=== PATIENT | female | born 1935 | race Caucasian/White ===

== ENCOUNTER 2017-02-09 18:24 | Emergency (ER) | payer MEDICARE, OTHER ==
[~2017-02-09] VITALS: Ht 157.5 cm; Wt 59.0 kg
[~2017-02-09 18:24] MED LIST: AMLO5TAB4 PO; ASPI-664 PO; OLME5TAB4 PO
[2017-02-09 18:27] VITALS: Ht 157.5 cm; Wt 59.0 kg
--- NOTE | 2017-02-09 18:33 | ERD ---
ER Documentation Chief Complaint Chief Complaint CHEST PRESSURE RELIEVED WITH NITRO SPRAY X 1 ROS All systems reviewed and are negative except as per history of present illness. Medications Home Meds Active Scripts Amlodipine Besylate* (Norvasc*) 5 Mg Tablet, 5 MG PO DAILY for 30 Days, TAB 2 Refills Prov:JUVENTINO MULLEN S. 06/01/14 Olmesartan Medoxomil (Benicar) 5 Mg Tablet, 10 MG PO DAILY for 30 Days, TAB 2 Refills Prov:CARISA MULLENP S. 06/01/14 Reported Medications Aspirin* (Aspirin* EC) 81 Mg Tablet.dr, 81 MG PO DAILY, TAB 05/31/14 Allergies Allergies: Coded Allergies: Apricot (Verified Allergy, Unknown, 06/01/14) morphine (Verified Allergy, Unknown, VOMITING X6HRS PER FAMILY, 06/01/14) PMhx/Soc History of Surgery: Yes (appendectomy,uterus sx) Anesthesia Reaction: No Hx Neurological Disorder: No Hx Respiratory Disorders: No Hx Cardiac Disorders: Yes (HTN) Hx Psychiatric Problems: No Hx Miscellaneous Medical Probl: Yes (HTN) Hx Alcohol Use: No Hx Substance Use: No Hx Tobacco Use: No Physical Exam Vitals Vital Signs Date Time Temp Pulse Resp B/P Pulse Ox O2 Delivery O2 Flow Rate FiO2 02/09/17 18:27 98.4 88 18 174/76 96 Physical Exam Const: [] Head: Atraumatic Eyes: Normal Conjunctiva ENT: Normal External Ears, Nose and Mouth. Neck: Full range of motion..~ No meningismus. Resp: Clear to auscultation bilaterally Cardio: Regular rate and rhythm, no murmurs Abd: Soft, non tender, non distended. Normal bowel sounds Skin: No petechiae or rashes Back: No midline or flank tenderness Ext: No cyanosis, or edema Neur: Awake and alert Psych: Normal Mood and Affect DELMA MACDONALD MD Feb 09, 2017 18:33
--- NOTE | 2017-02-09 19:13 | RADRPT ---
PROCEDURE: XR Chest. CLINICAL INDICATION: Chest Pain. TECHNIQUE: Single frontal view of the chest was obtained COMPARISON: Chest radiograph dated November 25, 2007. FINDINGS: The heart is normal in size. There are chronic interstitial lung changes, similar in appearance when compared to prior study. No focal consolidations, pleural effusions, or pneumothorax. There are degenerative changes of the spine and shoulder joints. IMPRESSION: 1. No acute cardiopulmonary disease. 2. Chronic interstitial lung changes, not significantly changed in appearance compared to prior nishi dy. RPTAT:AAJJ Physician Hortensia Date Time Electronically viewed and signed by Physician Hortensia on 02/09/2017 19:13 QL/
[2017-02-09] MEDS ORDERED: NIFE30TA60 PO (19:17)
[2017-02-09] MEDS ORDERED: CLON-379 PO (19:18)
[2017-02-09] MEDS ORDERED: RANI150T5 PO (19:19)
[2017-02-09] MEDS ORDERED: METO-429 PO (19:19)
[2017-02-09] MEDS ORDERED: AMLO-147 PO (19:21)
[2017-02-09] MEDS ORDERED: ASPI81TA50 PO (19:22)
[2017-02-09] MEDS ORDERED: MEMA5TAB PO (19:24)
[2017-02-09] MEDS ORDERED: CRES10 PO (19:24)
[2017-02-09] MEDS ORDERED: OMEP20CA16 PO (19:25)
[2017-02-09] MEDS ORDERED: SOD CHLORIDE 0.9% 500 ML IV STA (20:12)
--- NOTE | 2017-02-09 20:19 | ERD ---
ER Documentation Chief Complaint Chief Complaint CHEST PRESSURE RELIEVED WITH NITRO SPRAY X 1 HPI 81-year-old female with a history of hypertension and high cholesterol brought into the ER by EMS for chest pain. She was given aspirin and nitro prior to arrival with improvement of her symptoms. The patient states that her blood pressure is frequently out of control with a systolic blood pressure in the 180s. Today she started having dizziness, epigastric discomfort, nausea, with headache. This started several hours prior to arrival. Because her symptoms were not improving, ambulance was called. Now she states she feels much better after the nitro. ROS All systems reviewed and are negative except as per history of present illness. Medications Home Meds Reported Medications Omeprazole* (Omeprazole*) 20 Mg Capsule., 20 MG PO DAILY, #30 CAP 02/09/17 Memantine* (Namenda*) 5 Mg Tablet, 5 MG PO DAILY, #30 TAB 02/09/17 Rosuvastatin Calcium* (Crestor*) 10 Mg Tablet, 10 MG PO QHS, #30 TAB 02/09/17 Aspirin (Aspir-Low) 81 Mg Tablet., 81 MG PO DAILY 02/09/17 Amlodipine Besylate* (Amlodipine Besylate*) 10 Mg Tablet, 10 MG PO DAILY, #30 TAB IF NEEDED PATIENT NEED TO TAKE 1TAB-QAM AND 1/2TAB-QHS 02/09/17 Ranitidine Hcl* (Ranitidine Hcl*) 150 Mg Tablet, 150 MG PO HS, #30 TAB 02/09/17 Metoprolol Tartrate* (Lopressor*) 50 Mg Tab, 50 MG PO DAILY, #60 TAB 02/09/17 Clonidine Hcl* (Clonidine Hcl*) 0.1 Mg Tab, 0.1 MG PO NEEDED Y for HTN, TAB 02/09/17 Nifedipine* (Nifedipine ER*) 30 Mg Tablet.sa, 30 MG PO BID, TAB.SA 02/09/17 Discontinued Reported Medications Aspirin* (Aspirin* EC) 81 Mg Tablet., 81 MG PO DAILY, TAB 05/31/14 Discontinued Scripts Amlodipine Besylate* (Norvasc*) 5 Mg Tablet, 5 MG PO DAILY for 30 Days, TAB 2 Refills Prov:JUVENTINO MULLEN S. 06/01/14 Olmesartan Medoxomil (Benicar) 5 Mg Tablet, 10 MG PO DAILY for 30 Days, TAB 2 Refills Prov:JUVENTINO MULLEN. 06/01/14 Allergies Allergies: Coded Allergies: Apricot (Verified Allergy, Unknown, 02/09/17) morphine (Verified Allergy, Unknown, VOMITING X6HRS PER FAMILY, 02/09/17) PMhx/Soc History of Surgery: Yes Anesthesia Reaction: No Hx Neurological Disorder: No Hx Respiratory Disorders: No Hx Cardiac Disorders: Yes (Hypertension) Hx Psychiatric Problems: No Hx Miscellaneous Medical Probl: No Hx Alcohol Use: No Hx Substance Use: No Hx Tobacco Use: No Smoking Status: Never smoker FmHx Family History: No coronary disease Physical Exam Vitals Vital Signs Date Time Temp Pulse Resp B/P Pulse Ox O2 Delivery O2 Flow Rate FiO2 02/09/17 19:34 98.0 85 21 154/73 98 Room Air 02/09/17 19:34 Nasal Cannula 2 02/09/17 18:27 98.4 88 18 174/76 96 Physical Exam Const: Well-appearing, no apparent distress Head: Atraumatic Eyes: Normal Conjunctiva, PERRLA, EOMI ENT: Normal External Ears, Nose and Mouth. Neck: Full range of motion..~ No meningismus. Resp: Clear to auscultation bilaterally Cardio: Regular rate and rhythm, no murmurs. 2+ distal pulses in all 4 extremities Abd: Soft, non tender, non distended. Normal bowel sounds Skin: No petechiae or rashes Back: No midline or flank tenderness Ext: No cyanosis, or edema Neur: Awake and alert, oriented 3, cranial nerves intact, strength and sensations intact in all 4 extremities Psych: Normal Mood and Affect Result Diagram: 02/09/173 02/09/17 1833 Results 24 hrs Laboratory Tests Test 02/09/17 18:33 White Blood Count 5.010^3/ul Red Blood Count 3.8810^6/ul Hemoglobin 10.6g/dl Hematocrit 33.1% Mean Corpuscular Volume 85.3fl Mean Corpuscular Hemoglobin 27.3pg Mean Corpuscular Hemoglobin Concent 32.0g/dl Red Cell Distribution Width 14.4% Platelet Count 50929^3/UL Mean Platelet Volume 9.6fl Neutrophils % 63.4% Lymphocytes % 26.6% Monocytes % 7.4% Eosinophils % 1.8% Basophils % 0.6% Nucleated Red Blood Cells % 0.0/100WBC Neutrophils # 3.210^3/ul Lymphocytes # 1.310^3/ul Monocytes # 0.410^3/ul Eosinophils # 0.110^3/ul Basophils # 0.010^3/ul Nucleated Red Blood Cells # 0.010^3/ul Sodium Level 142mmol/L Potassium Level 4.2mmol/L Chloride Level 109mmol/L Carbon Dioxide Level 23mmol/L Anion Gap 14 Blood Urea Nitrogen 28mg/dl Creatinine 1.17mg/dl Glucose Level 117mg/dl Calcium Level 8.4mg/dl Troponin I < 0.012ng/ml Current Medications Medications (Trade) Dose Ordered Sig/Nancy Route PRN Reason Start Time Stop Time Status Last Admin Dose Admin Sodium Chloride (NS) 500 ml @ 500 mls/hr Q1H STAT IV 02/09/17 20:12 02/09/17 21:11 Procedures/MDM EKG: Rate/Rhythm: Normal Sinus Rhythm QRS, ST, T-waves: No changes consistent w/ acute ischemia Impression: No evidence of ischemia or arrhythmia Labs CBC shows mild anemia BMP shows evidence of renal insufficiency Troponin is within normal limits Imaging Chest x-ray shows no acute abnormalities MDM Patient's symptoms are concerning for cardiac cause will require inpatient workup and continuous monitoring. Her initial EKG and troponin were normal, however given the patient's age, comorbidities, and symptoms, I explained to her and her family that I have an increased suspicion for possible ACS. I have a lower suspicion for aortic dissection or pulmonary embolism. However the patient stated to me that she feels much better and she would like to go home. I explained to her that I cannot rule out a problem with her heart at this time , but she insists on leaving. She understands the risks of leaving today as does her son. I encouraged them to return to the ER if they change their mind or should she have any worsening symptoms. Departure Diagnosis: Primary Impression: Chest pain Chest pain type: unspecified Qualified Code: R07.9 - Chest pain, unspecified type Additional Impression: Hypertensive urgency Condition: Fair Patient Instructions: Chest Pain, Uncertain Cause, Hypertension, Established, Out Of Control Additional Instructions: You are leaving against my medical advice. Follow-up with your doctor first thing tomorrow morning. Return to the ER if you change your mind about admission or your symptoms worsen. STEFFI CONTRERAS MD Feb 09, 2017 20:19
[2017-02-09 20:45] VITALS: BP 147/66; PULSE 79; RESP 20; TEMP 98.1
== END 2017-02-09 20:59 | disposition left against medical advice (07) ==
LOC: E/R 18:24
DX: R10.9 Unspecified abdominal pain (principal); I16.0 Hypertensive urgency; I10 Essential (primary) hypertension; R40.2252 Coma scale, best verbal response, oriented, at arrival to emergency department; R40.2142 Coma scale, eyes open, spontaneous, at arrival to emergency department; R40.2362 Coma scale, best motor response, obeys commands, at arrival to emergency department; Z79.82 Long term (current) use of aspirin
CPT/HCPCS: 36415; 71010; 80048; 84484; 85025; 93005; 99285; J7040